=== PATIENT | female | born 1990 | race Caucasian/White ===

== ENCOUNTER 2018-07-15 06:50 | Inpatient (IN) | payer OTHER, BC ==
[2018-07-15] MEDS ORDERED: ELECTROLYTE-148 SOLN 1,000 ML IV SCH (08:15)
--- NOTE | 2018-07-15 08:20 | HP ---
Past Medical History - Admission History of Present Illness: 28 yo @ 39 4/7 wks by first trimester ultrasound, EDC 07/18/2018 complicated by: 1. IUI - Declines inheritest (CF/SMA/Fx) Screening 2. Gestational Proteinuria No BP elevation 24 H uprotein 06/28/2018 - 525.40 Patient presents with chief complaint of contractions which began at 0200. She reports movement, denies leakage of fluid or vaginal bleeding. History Source: Patient Limitations to Obtaining History: No Limitations - Past Medical History Cardiovascular: No: HTN Pulmonary: No: Asthma Gastrointestinal: No: GERD ...: 1 ...Para: 0 ...Term: 0 ...: 0 ...Spon : 0 ...Induced : 0 ...LMP: 10/14/17 ... Weeks Gestation by Dates: 39.1 ...EDC by Dates: 07/21/18 ...EDC by Sono: 07/18/18 Heme/Onc: No: Anemia - Past Surgical History Hx Myomectomy: No Hx Transabdominal Cerclage: No Additional Surgical History: Bunionectomy - Smoking History Smoking history: Never smoked Have you smoked in the past 12 months: No - Alcohol/Substance Use Hx Alcohol Use: Yes ([facility].) - Social History History of Recent Travel: No Home Medications - Allergies Allergies/Adverse Reactions: Allergies Allergy/AdvReac Type Severity Reaction Status Date / Time No Known Allergies Allergy Verified 07/15/18 08:05 - Home Medications Home Medications: Ambulatory Orders No Home Medications 0 dose .ROUTE UTDICT 05/19/12 Family Disease History - Family Disease History Family History: Denies Review of Systems - Review of Systems Constitutional: reports: No Symptoms Cardiovascular: reports: No Symptoms Respiratory: reports: No Symptoms Gastrointestinal: reports: No Symptoms Genitourinary: reports: No Symptoms Integumentary: reports: No Symptoms Hematology/Lymphatic: reports: No Symptoms Psychiatric: reports: No Symptoms Physical Exam - Maternity Vital Signs: Vital Signs Temperature 97.9 F 07/15/18 08:00 Pulse Rate 70 07/15/18 08:00 Respiratory Rate 20 07/15/18 08:00 Blood Pressure 121/70 07/15/18 08:00 O2 Sat by Pulse Oximetry (%) Constitutional: Yes: Well Nourished, No Distress, Calm Cardiovascular: Yes: Regular Rate and Rhythm Lungs: Clear to auscultation - Abdominal Exam/OB Number of Fetuses: Single Presentation: Vertex Contractions: Yes Regularity: Regular Intensity: Mod/Strong Category: I Accelerations: Non-Uniform Decelerations: None - Vaginal Exam/OB Dilatation (cm): 4 Effacement (%): 50 Station: -3 - Physical Exam Edema: No Psychiatric: Yes: Alert, Oriented - Labs Lab Results: PNL: O positive, antibody negative; RPR NR; HIV neg; HBS Ag neg; Varicella immune; Rubella Immune; Parvo non-immune; GCT WNL; Hg Li AA; GBS neg Hemorrhage Risk Assessment - Risk Factors Medium Risk Factors: Yes: None High Risk Factors: Yes: None Risk Score: 1 Risk Level: Medium Risk Assessment/Plan 28 39 wks active labor 1. Admit to L&D 2. Routine labs collected and sent 3. GBS neg 4. category I FHT 5. will offer pain medication upon patient request
[2018-07-15 08:33] VITALS: BMI 30.7
[2018-07-15 09:00] LABS: BASO % 0.4 % (0-2.0); EOS % 0.1 % (0-4.5); HEMOGLOBIN 14.2 GM/dL (10.7-15.3); LYMPH % 10.2 % (8-40); MCH 28.3 pg (25.7-33.7); MEAN CELL VOLUME 85.8 fl (80-96); MEAN PLT VOLUME 11.1 fl (7.5-11.1); MONO % 5.2 % (3.8-10.2); NEUT % 84.1 % (42.8-82.8); PLATELET COUNT 211 K/MM3 (134-434); RBC 5.01 M/mm3 (3.60-5.2); RDW 13.9 % (11.6-15.6); WHITE BLOOD COUNT 12.7 K/mm3 (4.0-10.0)
[2018-07-15 09:14] LABS: INR 0.88 (0.83-1.09); PROTHROMBIN TIME (PATIENT) 10.4 SEC (9.7-13.0)
[2018-07-15 09:17] LABS: ACTIVATED PTT 26.6 SECONDS (25.2-36.5)
[2018-07-15 09:26] LABS: ANION GAP 10 MMOL/L (8-16); BLOOD UREA NITROGEN 8 mg/dL (7-18); CALCIUM 8.3 mg/dL (8.5-10.1); CHLORIDE 107 mmol/L (98-107); CO2 21 mmol/L (21-32); CREATININE 0.6 mg/dL (0.55-1.3); GLUCOSE,RANDOM 76 mg/dL (74-106); POTASSIUM 4.6 mmol/L (3.5-5.1); SODIUM 139 mmol/L (136-145)
[2018-07-15] MEDS ORDERED: TUBERCULIN PPD 5 TU/0.1ML SYRINGE (IN PATIENT USE ONLY) ID ONE (10:00)
[2018-07-15] MEDS ORDERED: FENTANYL/BUPIVACAINE/NS/PF - PCEA - 50 ML DISP.SYRIN EP ONE ×3 (12:25→20:46)
[2018-07-15] MEDS ORDERED: OXYTOCIN 30 UNITS in 0.9% NS 30 UNIT/500 ML INFUS.BAG IVPB ONE (13:34)
--- NOTE | 2018-07-15 13:56 | PN ---
Progress Note (short form) - Note Progress Note: cx 4 cm, 80 vx -2 mi, fhr cat 1, has epidural , contraction short, advised pitocin, rba discussed
[2018-07-15] MEDS ORDERED: OXYTOCIN 30 UNITS in 0.9% NS 30 UNIT/500 ML INFUS.BAG IVPB SCH (14:00)
[2018-07-15] MEDS ORDERED: NALOXONE HCL 0.4 MG/ML VIAL IVPUSH PRN (14:33)
[2018-07-15] MEDS ORDERED: FENTANYL/BUPIVACAINE/NS/PF - PCEA - 50 ML DISP.SYRIN EP SCH (14:45)
--- NOTE | 2018-07-15 17:24 | PN ---
Progress Note (short form) - Note Progress Note: cx 6 cm. 80 vx -2 srom, mec stained , fhr cat 1, regular contractions
[2018-07-16] MEDS ORDERED: LIDOCAINE HCL 1% PRESERVATIVE FREE - 30ML VIAL ONE (00:47)
[2018-07-16] MEDS ORDERED: OXYTOCIN 20 UNITS in 0.9% NS 20 UNIT/1,000 ML INFUS.BAG IV ONE (00:48)
[2018-07-16] MEDS ORDERED: FENTANYL/BUPIVACAINE/NS/PF - PCEA - 50 ML DISP.SYRIN EP ONE (01:21)
--- NOTE | 2018-07-16 03:51 | PN ---
Progress Note (short form) - Note Progress Note: cx full ,100 vx 2+. mr , fhr cat 2, expect delivery soon`
[2018-07-16] MEDS ORDERED: METHYLERGONOVINE MALEATE 0.2 MG/1 ML AMP IM PRN (04:22)
[2018-07-16] MEDS ORDERED: BENZOCAINE 20% 57 GM BOTTLE TP PRN (04:22)
[2018-07-16] MEDS ORDERED: WITCH HAZEL 50% (TUCKS) 40 PAD/JAR PAD TP PRN (04:22)
[2018-07-16] MEDS ORDERED: BISACODYL 10 MG SUPP.RECT RC PRN (04:22)
[2018-07-16] MEDS ORDERED: BENZOCAINE 28 GM HEMORRHOIDAL OINTMENT TP PRN (04:22)
[2018-07-16] MEDS ORDERED: D5W-LR W/ 20 UNITS OXYTOCIN 1,000 ML IV SCH (04:30)
[2018-07-16] MEDS ORDERED: OXYTOCIN 20 UNITS in 0.9% NS 20 UNIT/1,000 ML INFUS.BAG IV SCH (04:30)
[2018-07-16 04:35] LABS: VENOUS PH 7.31 (7.32-7.42)
[2018-07-16] MEDS: PRENATAL VITAMINS W/ FOLIC ACID TABLET (FP) PO SCH (10:00)
[2018-07-16] MEDS: FERROUS SO4 325 MG TABLET (FP) PO SCH ×2 (10:00→21:14)
[2018-07-16] MEDS: ACETAMINOPHEN 325 MG TABLET (FP) PO PRN ×2 (10:00→21:14)
[2018-07-16] MEDS: IBUPROFEN 600 MG TABLET (FP) PO PRN ×2 (10:01→21:14)
[2018-07-17 09:10] LABS: BASO % 0.3 % (0-2.0); EOS % 0.4 % (0-4.5); HEMATOCRIT 36.2 % (32.4-45.2); HEMOGLOBIN 11.6 GM/dL (10.7-15.3); LYMPH % 12.9 % (8-40); MCH 27.5 pg (25.7-33.7); MEAN CELL VOLUME 85.9 fl (80-96); MEAN PLT VOLUME 10.1 fl (7.5-11.1); MONO % 4.8 % (3.8-10.2); NEUT % 81.6 % (42.8-82.8); PLATELET COUNT 198 K/MM3 (134-434); RBC 4.21 M/mm3 (3.60-5.2); RDW 14.7 % (11.6-15.6); WHITE BLOOD COUNT 13.5 K/mm3 (4.0-10.0)
[2018-07-17] MEDS: FERROUS SO4 325 MG TABLET (FP) PO SCH ×2 (10:03→21:50)
[2018-07-17] MEDS: PRENATAL VITAMINS W/ FOLIC ACID TABLET (FP) PO SCH (10:03)
[2018-07-17] MEDS: IBUPROFEN 600 MG TABLET (FP) PO PRN ×2 (13:04→19:30)
[2018-07-17] MEDS: ACETAMINOPHEN 325 MG TABLET (FP) PO PRN ×2 (13:05→19:31)
[2018-07-17] MEDS ORDERED: SENNOSIDES/DOCUSATE COMBO (SENNA PLUS) TABLET (UD) PO PRN (22:00)
--- NOTE | 2018-07-18 08:29 | DS ---
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: Vital Signs Temperature 98.7 F 07/17/18 21:27 Pulse Rate 90 07/17/18 21:27 Respiratory Rate 18 07/17/18 21:27 Blood Pressure 116/73 07/17/18 21:27 O2 Sat by Pulse Oximetry (%) 100 07/16/18 05:30 Constitutional: Yes: Well Nourished, No Distress, Calm Eyes: Yes: WNL, Conjunctiva Clear, EOM Intact HENT: Yes: WNL, Atraumatic, Normocephalic Neck: Yes: WNL, Supple, Trachea Midline Cardiovascular: Yes: WNL, Regular Rate and Rhythm Respiratory: Yes: WNL, Regular, CTA Bilaterally Gastrointestinal: Yes: WNL ...Rectal Exam: Yes: WNL Renal/: Yes: WNL External Genitalia: Yes: Normal ....Post : Yes: Uterus firm, Uterus non-tender, Slight lochia rubra Breast(s): Yes: WNL Musculoskeletal: Yes: WNL Extremities: Yes: WNL Integumentary: Yes: WNL Neurological: Yes: WNL, Alert, Oriented ...Motor Strength: WNL Psychiatric: Yes: WNL, Alert, Oriented Labs: CBC, BMP 07/17/18 08:44 07/15/18 08:50 Delivery - Delivery Vaginal Delivery: Spontaneous (no complication) Type of Anesthesia: Epidural Episiotomy/Laceration: Midline EBL (cc): 300 Delivery, Single - Stages of Labor Date 1st Stage Initiatied: 07/15/18 Time 1st Stage Initiated: 13:00 Date 2nd Stage Initiated: 07/16/18 Time 2nd Stage Initiated: 03:20 Date of Delivery: 07/16/18 Time of Delivery: 04:01 Time Placenta Delivered: 04:18 - 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 Custom Present: No Gender: Female Weight: 6 lb 15 oz Position: Left, OA Total Hours ROM (Hrs/Mins): 10Hrs/58Mins - 1 Minute Total Score: 9 5 Minutes Total Score: 9 - Feeding Plan Initial Plan: Exclusive throughout hospitalization Discharge Summary Reason For Visit: LABOR ADMISSION Condition: Good - Instructions Diet, Activity, Other Instructions: regular diet, follow up office 4 weeks, if pain, fever , heavy vaginal bleeding, call Disposition: HOME - Home Medications Comprehensive Discharge Medication List: Ambulatory Orders Pnv No.95/Ferrous Fum/Folic AC [ Formula] 1 each PO DAILY 07/15/18 Ibuprofen [Motrin -] 600 mg PO QID #28 tablet 07/16/18
[2018-07-18] MEDS: IBUPROFEN 600 MG TABLET (FP) PO PRN (08:31)
[2018-07-18] MEDS: ACETAMINOPHEN 325 MG TABLET (FP) PO PRN (08:32)
[2018-07-18] MEDS: PRENATAL VITAMINS W/ FOLIC ACID TABLET (FP) PO SCH (10:03)
[2018-07-18] MEDS: FERROUS SO4 325 MG TABLET (FP) PO SCH (10:03)
[2018-07-18 10:26] VITALS: BP 112/71; PULSE 77; TEMP 98.2
== END 2018-07-18 12:55 | disposition home or self-care (01) | DRG 807 ==
LOC: JDEL 06:50 → JLDR 08:00 → J3W 07-16 05:47
PROVIDERS: ADMIT Obstetrics & Gynecology; ATTEND Obstetrics & Gynecology
PROC: 10E0XZZ Delivery of Products of Conception, External Approach (ICD-10-PCS; principal; 2018-07-16)
PROC: 0W8NXZZ Division of Female Perineum, External Approach (ICD-10-PCS; 2018-07-16)
DX: O80 Encounter for full-term uncomplicated delivery (principal); Z37.0 Single live birth; Z3A.39 39 weeks gestation of pregnancy
CPT/HCPCS: 36415; 59025; 59409; 80048; 82803; 85025; 85610; 85730; 86593; 86850; 86900; 86901; 87389